=== PATIENT | female | born 1990 | race African-American/Black ===

== ENCOUNTER 2023-12-29 13:11 | Emergency (ER) | payer OTHER ==
[~2023-12-29] VITALS: Ht 170.2 cm; Wt 131.0 kg
[2023-12-29 13:23] VITALS: O2SAT 95
[2023-12-29 14:25] LABS: CLARITY URINE CLEAR (CLEAR); COLOR URINE DARK YELLOW (YELLOW); GLUCOSE URINE NEGATIVE (NEGATIVE); KETONES URINE NEGATIVE (NEGATIVE); LEUKOCYTE ESTERASE URINE 1+ (NEGATIVE); NITRITE URINE NEGATIVE (NEGATIVE); OCCULT BLOOD URINE NEGATIVE (NEGATIVE); PH URINE 6.5 (4.5-8.0); PROTEIN URINE NEGATIVE (NEGATIVE); SPECIFIC GRAVITY URINE 1.015 (1.005-1.030)
[2023-12-29 14:40] LABS: BACTERIA URINE TRACE; RBC URINE 0-2 /hpf (0-2); SQUAMOUS EPITHELIAL CELL URINE 1+ /lpf (RARE/1+); WBC URINE 25-50 /hpf (0-2); YEAST URINE NONE SEEN
[2023-12-29 14:48] LABS: BASOPHILS % 0.9 % (0.0-2.0); EOSINOPHILS % 1.7 % (0.0-5.0); HEMOGLOBIN. 10.2 g/dL (12.0-16.0); LYMPHOCYTES % 25.2 % (20.0-50.0); MEAN CORPUSCULAR HEMOGLOBIN 30.3 pg (28.0-32.0); MEAN CORPUSCULAR HGB CONC 32.9 g/dL (31.0-37.0); MEAN PLATELET VOLUME 8.9 fl (7.4-10.4); MONOCYTES % 8.3 % (2.0-8.0); NEUTROPHILS % 63.9 % (40.0-76.0); PLATELET 325 x1000/uL (130-400); RED BLOOD CELL COUNT 3.37 mill/uL (4.2-5.4); RED CELL DISTRIBUTION WIDTH 16.5 % (11.6-14.6); WHITE BLOOD COUNT 5.7 x1000/uL (4.5-11.0)
[2023-12-29 15:01] LABS: CHLORIDE 104 mEq/L (98-107); POTASSIUM 3.6 mEq/L (3.5-5.1); SODIUM 138 mEq/L (136-145)
[2023-12-29 15:02] LABS: CALCIUM 8.7 mg/dL (8.7-10.4); CARBON DIOXIDE 27 mEq/L (21-32)
[2023-12-29 15:07] LABS: CREATININE 0.8 mg/dL (0.6-1.0); GLUCOSE 90 mg/dL (70-105)
[2023-12-29 15:08] LABS: UREA NITROGEN BLOOD 6 mg/dL (9-23)
[2023-12-29] MEDS: ONDANSETRON 4MG/5ML UDC PO ONE (15:08)
[2023-12-29 15:09] LABS: ALANINE AMINOTRANSFERASE 7 IU/L (10-49); ALBUMIN 3.6 g/dL (3.2-4.8); BILIRUBIN DIRECT 0.1 mg/dL (<=3.0)
[2023-12-29 15:10] LABS: BILIRUBIN TOTAL 0.4 mg/dL (0.1-1.0); PROTEIN TOTAL 6.5 g/dL (6.0-8.3)
[2023-12-29 15:21] LABS: ASPARTATE AMINOTRANSFERASE < 8 IU/L (<34)
[2023-12-29] MEDS ORDERED: CEPH500C2 MT (15:59)
[2023-12-29 17:05] VITALS: BP 148/87; PULSE 72; RESP 18; TEMP 36.94740; O2SAT 95
== END 2023-12-29 17:07 | disposition home or self-care (01) ==
LOC: ER 13:20
DX: O23.41 Unspecified infection of urinary tract in pregnancy, first trimester (principal); N39.0 Urinary tract infection, site not specified; Z98.890 Other specified postprocedural states; Z3A.00 Weeks of gestation of pregnancy not specified
CPT/HCPCS: 36415; 80048; 80076; 81003; 81025; 85025; 99283

== ENCOUNTER 2024-05-16 15:00 | Emergency (ER) | payer OTHER ==
[~2024-05-16] VITALS: Ht 165.1 cm; Wt 127.0 kg
[~2024-05-16 15:00] MED LIST: CEPH500C2 MT
[2024-05-16 15:03] VITALS: O2SAT 100
[2024-05-16] MEDS ORDERED: ACETAMINOPHEN 325MG TABLET PO STA (18:00)
[2024-05-16 19:08] LABS: BASOPHILS % 0.8 % (0.0-2.0); EOSINOPHILS % 1.4 % (0.0-5.0); HEMATOCRIT. 33.9 % (36.0-48.0); HEMOGLOBIN. 10.8 g/dL (12.0-16.0); LYMPHOCYTES % 36.2 % (20.0-50.0); MEAN CORPUSCULAR HGB CONC 31.9 g/dL (31.0-37.0); MEAN CORPUSCULAR VOLUME 93.8 fL (81.0-99.0); MEAN PLATELET VOLUME 8.7 fl (7.4-10.4); MONOCYTES % 10.9 % (2.0-8.0); NEUTROPHILS % 50.7 % (40.0-76.0); PLATELET 293 x1000/uL (130-400); RED BLOOD CELL COUNT 3.62 mill/uL (4.2-5.4); RED CELL DISTRIBUTION WIDTH 16.8 % (11.6-14.6); WHITE BLOOD COUNT 5.4 x1000/uL (4.5-11.0)
[2024-05-16 19:28] LABS: CHLORIDE 108 mEq/L (98-107); POTASSIUM 4.2 mEq/L (3.5-5.1); SODIUM 142 mEq/L (136-145)
[2024-05-16 19:29] LABS: CALCIUM 8.7 mg/dL (8.7-10.4); CARBON DIOXIDE 27 mEq/L (21-32)
[2024-05-16 19:34] LABS: CREATININE 0.9 mg/dL (0.6-1.0); GLUCOSE 95 mg/dL (70-105); UREA NITROGEN BLOOD 16 mg/dL (9-23)
[2024-05-16] MEDS: ACETAMINOPHEN 325MG TABLET PO NR (20:54)
[2024-05-16] MEDS: CEFTRIAXONE SODIUM 500MG VIAL IM ONE (22:37)
[2024-05-16] MEDS: DIPHENHYDRAMINE 25MG CAPSULE PO ONE (22:37)
[2024-05-16] MEDS: LIDOCAINE HCL/PF 1% 10 MG/ML 5ML VIAL INFIL ONE (22:37)
[2024-05-16 22:39] LABS: CLARITY URINE CLEAR (CLEAR); COLOR URINE YELLOW (YELLOW); GLUCOSE URINE NEGATIVE (NEGATIVE); KETONES URINE NEGATIVE (NEGATIVE); LEUKOCYTE ESTERASE URINE NEGATIVE (NEGATIVE); NITRITE URINE NEGATIVE (NEGATIVE); OCCULT BLOOD URINE NEGATIVE (NEGATIVE); PROTEIN URINE NEGATIVE (NEGATIVE); SPECIFIC GRAVITY URINE 1.025 (1.005-1.030)
[2024-05-16] MEDS ORDERED: METR-167 MT (22:57)
[2024-05-16] MEDS ORDERED: CETI10TA6 MT (22:57)
[2024-05-16] MEDS ORDERED: ACET-2708 PO (22:57)
[2024-05-16] MEDS ORDERED: DOXY100T28 MT (22:57)
[2024-05-16 23:59] VITALS: BP 147/79; PULSE 91; RESP 20; TEMP 37.1; O2SAT 100
[2024-05-19 05:08] LABS: CHLAMYDIA TRACHOMATIS NAA Negative (Negative); NEISSERIA GONORRHOEAE NAA Negative (Negative)
== END 2024-05-17 00:01 | disposition home or self-care (01) ==
LOC: ER 15:00
DX: N76.0 Acute vaginitis (principal); N72 Inflammatory disease of cervix uteri; L29.9 Pruritus, unspecified; Z88.0 Allergy status to penicillin
CPT/HCPCS: 99284; 87491; 87591; 80048; 81003; 81025; 85025; 87210; 36415; 96372; Q0163; J0696; J2003